=== PATIENT | female | born 1965 | race Caucasian/White ===

== ENCOUNTER → 2017-01-07 | Outpatient (CLI) | payer BC ==
[~2017-01-07] MED LIST: AMOX500T3 PO
[2017-01-07 13:13] LABS: BASO % 0.7 %; BASO ABS # 0.04 K/uL (0-0.2); COMPLETE YES; EOS % 1.7 %; HEMATOCRIT 38.8 % (37-47); IG% 0.5 %; LYMPH % 26.5 %; LYMPH ABS # 1.59 K/uL (1.2-3.4); MEAN CELL VOLUME 92.4 fL (80-100); MEAN CORPUSCULAR HEMOGLOBIN 31.7 pg (25-34); MEAN CORPUSCULAR HGB CONC 34.3 g/dl (32-36); MEAN PLATELET VOLUME 9.2 fL (7.4-10.4); MONO % 5.8 %; NEUT % 64.8 %; PLATELET COUNT 274 K/uL (130-400)
[2017-01-07 13:33] LABS: ALT/SGPT 34 U/L (12-78); AST/SGOT 18 U/L (15-37); BLOOD UREA NITROGEN 17 mg/dl (7-18); BUN/CREATININE RATIO 17.8 (10-20); CARBON DIOXIDE 28 mmol/L (21-32); CHLORIDE 107 mmol/L (98-107); CREATININE 0.94 mg/dl (0.60-1.20); GLUCOSE 88 mg/dl (70-99); POTASSIUM 4.2 mmol/L (3.5-5.1); SODIUM 143 mmol/L (136-145)
[2017-01-07 13:42] LABS: ALB/GLOB RATIO 1.3 (0.9-2); ALKALINE PHOSPHATASE 64 U/L (45-117); CHOLESTEROL 179 mg/dl (0-200); CHOLESTEROL/HDL RATIO 3.5; HDL CHOLESTEROL 51 mg/dl; LDL CHOLESTEROL CALCULATED 104 mg/dl; TRIGLYCERIDES 120 mg/dl (0-150); VERY LOW DENSITY LIPOPROT CALC 24 mg/dl
== END | disposition home or self-care (01) ==
LOC: C.LABMFLN 10:17
PROVIDERS: ATTEND Family Medicine
DX: I10 Essential (primary) hypertension (principal); E78.5 Hyperlipidemia, unspecified

== ENCOUNTER → 2017-02-04 | Outpatient (CLI) | payer BC ==
[2017-02-08 04:30] LABS: HERPES SIMPLEX AB IGG-2 <0.90 INDEX; HSV1 AB IGM Positive (Negative); HSV2 AB IGM Positive (Negative)
== END | disposition home or self-care (01) ==
LOC: C.LAB1850 16:24
PROVIDERS: ATTEND Physician Assistant
DX: B00.9 Herpesviral infection, unspecified (principal)

== ENCOUNTER → 2018-01-30 | Outpatient (CLI) | payer BC ==
[2018-01-30 12:46] LABS: BASO % 0.7 %; BASO ABS # 0.04 K/uL (0-0.2); EOS % 2.5 %; EOS ABS # 0.14 K/uL (0-0.5); HEMATOCRIT 39.2 % (37-47); HEMOGLOBIN 13.1 g/dL (12.0-16.0); IG# 0.02 K/uL (0.00-0.02); LYMPH % 37.7 %; LYMPH ABS # 2.08 K/uL (1.2-3.4); MEAN CORPUSCULAR HEMOGLOBIN 31.4 pg (25-34); MEAN CORPUSCULAR HGB CONC 33.4 g/dl (32-36); MEAN PLATELET VOLUME 9.4 fL (7.4-10.4); MONO % 7.1 %; MONO ABS # 0.39 K/uL (0.11-0.59); NEUT % 51.6 %; NEUT ABS # 2.85 K/uL (1.4-6.5); PLATELET COUNT 313 K/uL (130-400); RED CELL DISTRIBUTION WIDTH CV 13.2 % (11.5-14.5); RED CELL DISTRIBUTION WIDTH SD 45.6 fL (36.4-46.3); WHITE BLOOD COUNT 5.52 K/uL (4.8-10.8)
[2018-01-30 13:24] LABS: ALBUMIN 3.8 gm/dl (3.4-5.0); ALT/SGPT 32 U/L (12-78); AST/SGOT 21 U/L (15-37); BLOOD UREA NITROGEN 15 mg/dl (7-18); CALCIUM 9.3 mg/dl (8.5-10.1); CARBON DIOXIDE 29 mmol/L (21-32); CHOLESTEROL 147 mg/dl (0-200); CREATININE 0.82 mg/dl (0.60-1.20); GLUCOSE 98 mg/dl (70-99); POTASSIUM 4.4 mmol/L (3.5-5.1); SODIUM 138 mmol/L (136-145)
[2018-01-30 13:25] LABS: ALKALINE PHOSPHATASE 73 U/L (45-117); LDL CHOLESTEROL CALCULATED 86 mg/dl; TOTAL PROTEIN 7.1 gm/dl (6.4-8.2)
== END | disposition home or self-care (01) ==
LOC: C.LABMFLN 08:25
PROVIDERS: ATTEND Family Medicine
DX: I10 Essential (primary) hypertension (principal); E78.5 Hyperlipidemia, unspecified

== ENCOUNTER 2024-07-20 02:13 | Inpatient (IN) ==
--- NOTE | 2024-07-20 02:39 | Emergency Department Note ---
Impression & Plan Sepsis, Abscess, vagina, Leukocytosis ED Provider Note NAME: CHET TOMLIN AGE: 58 SEX: F : 1965 ARRIVES VIA: Walk-In INFORMANT: Patient ED PROVIDER(S): Fransisco Skelton DO CHIEF COMPLAINT: Pelvic pain HPI: Patient is a 58-year-old female who presents to the ER for pelvic pain. She notes she noticed something protruding last night from her vagina and notes it has been constant and severely painful. She admits she is currently having trouble walking due to the pain. She currently has stage IV metastatic breast cancer and has her typical pain throughout her entire body. Denies any fevers. Last chemo was in June and it was an IM injection. Denies any headache or change in vision. No chest pain or shortness of breath. No dysuria, urgency, or frequency but it is acutely painful in the groin when she urinates. No other exacerbating or remitting factors. She has never had this before. ADDITIONAL HISTORY OBTAINED: Per HPI Chronic Medical/Social Conditions Affecting Care: Per HPI PAST MEDICAL HISTORY:See Below PAST SURGICAL HISTORY:See Below FAMILY HISTORY:See Below SOCIAL HISTORY:See Below HOME MEDICATIONS:See Below ALLERGIES:See Below VITALS:See Below PHYSICAL EXAMINATION: GENERAL: Sitting up in bed, alert, well appearing, well nourished, no distress, non-toxic EYE EXAM: normal conjunctiva. OROPHARYNX: mucous membranes are moist LUNGS: Clear to auscultation. Normal chest wall mechanics HEART: no murmurs, S1 normal and S2 normal ABDOMEN: abdomen soft, non-tender, normo-active bowel sounds, no masses, no rebound or guarding. : Normal external genitalia with swelling on the inferior aspect of the vulva which is warm and tender to palpation. No significant erythema. UPPER EXTREMITIES: upper extremities are grossly normal. LOWER EXTREMITIES: No pitting edema. NEURO EXAM: Normal sensorium, cranial nerves II-XII grossly intact, normal speech, no gross weakness of arms, no gross weakness of legs. MEDICAL DECISION MAKING: Patient is a 58-year-old female who presents to the ER for pain in the vagina. IV was established medicos obtained. Labs show leukocytosis of 15,000. Mild anemia 10.3. BMP with a hyponatremia at 134. LFTs bilirubin and lipase was remarkable for a lipase of 100. UA does suggest a UTI with leuks and whites. Discussed with Dr. Christy from [facility] who evaluate the patient. We did decide to perform a CT which suggest an abscess between the anus and vagina. This was discussed with Jeremy from general surgery as well as Dr. Christy. She recommended admission to the hospitalist IV antibiotics and they will follow-up. Patient was given IV Zosyn. Updated bedside. She was given IV morphine. She was discussed with Dr. Lay for further evaluation management treatment. Consults/Care Managements Discussions: Per [facility] Triage Nursing notes reviewed. Limited review of prior medical records performed Vital Signs: reviewed and remarkable for HTN Differential diagnosis: Differential diagnoses includes but is not limited to gastritis, peptic ulcer disease, GERD, gallbladder disease, pancreatitis, small bowel obstruction, appendicitis, diverticulitis, hernia, urinary tract infection, torsion, perforation, trauma, infectious. ER treatment provided: See below Diagnostics interpreted by me include EKG and cardiac monitoring as listed below: -Cardiac Monitoring: An order was placed for continuous cardiac monitoring. The monitor shows a rate of 92 with sinus rhythm. -ECG: none -Laboratory studies:Interpreted by me as stated above in MDM and shown below. Imaging studies: Xrays: As interpreted by me:none CTs show: CT abdomen pelvis per my preliminary interpretation showed no obvious bowel obstruction CT abdomen pelvis per radiology as described above suggest a 1.2 x 2 cm abscess between the anus and vagina Procedures:none Critical Care: None Past Med/Surg History Problem List (Updated 07/20/24 @ 05:38 by Fly Thomas PA-C) Perineal abscess Swelling of vulva Herpes simplex Candidiasis of genitalia in female Pain of both hip joints Chills COVID-19 Breast cancer metastasized to bone PTSD (post-traumatic stress disorder) (Chronic) Nephrolithiasis (Chronic) Migraine headache (Chronic) Essential hypertension (Chronic) Hyperlipidemia (Chronic) Depression with anxiety (Chronic) S/P hysterectomy S/P dilatation and curettage S/P colonoscopy 06/14/2011 Osteoarthritis, hand Multiple pulmonary nodules Arthritis of carpometacarpal (CMC) joint of both thumbs Breast cancer, left breast diagnosed March 2021 s/p bilateral mastectomy, chemotherapy, RT Postmastectomy lymphedema Hand arthritis Medical History Hand arthritis Postmastectomy lymphedema Breast cancer, left breast Arthritis of carpometacarpal (CMC) joint of both thumbs Multiple pulmonary nodules Carpal tunnel syndrome on both sides Osteoarthritis, hand Depression with anxiety Hyperlipidemia Essential hypertension Migraine headache Nephrolithiasis PTSD (post-traumatic stress disorder) Surgical History H/O bilateral mastectomy H/O breast biopsy S/P carpal tunnel release S/P colonoscopy S/P dilatation and curettage S/P hysterectomy Family History Mother Acoustic neuroma Dyslipidemia Brother Anxiety Colonic polyp Father Anxiety Bladder cancer Hypertension Denies family history of Ovarian cancer Prostate cancer Myocardial infarction Breast cancer Social History Smoking Status: Former smoker Tobacco Type: Cigarettes Hx Alcohol Use: Yes Alcohol type: hard liquor Alcohol Intake Frequency: 2-4 x/Month Hx Substance Use: Yes Preferred Language: Tanzanian marital status: Current Living Situation: Spouse Feels Safe at Home: Yes Allergies Allergies Allergy/AdvReac Type Severity Reaction Status Date / Time amoxicillin [From Augmentin] AdvReac yeast Verified 07/06/24 11:36 infection clavulanic acid AdvReac yeast Verified 07/06/24 11:36 [From Augmentin] infection clindamycin AdvReac yeast Verified 07/06/24 11:36 infection ibuprofen [From Advil] AdvReac yeast Verified 07/06/24 11:36 infection midazolam [From Versed] AdvReac Verified 07/06/24 11:36 fentanyl AdvReac Severe Uncoded 07/06/24 11:36 Home Meds Home Medications Medication Instructions Recorded Confirmed alprazolam 0.5 mg tablet 0.5 mg PO TID PRN anxiety 10/20/23 07/06/24 dextroamphetamine-amphetamine ER 20 mg PO DAILY 10/20/23 07/06/24 20 mg 24hr capsule,extend release prazosin 1 mg capsule 1 mg PO QPM 10/20/23 07/06/24 calcium carbonate 500 mg PO BID 06/03/24 07/06/24 cholecalciferol (vitamin D3) 25 25 mcg PO DAILY 06/03/24 07/06/24 mcg (1,000 unit) capsule escitalopram oxalate 20 mg tablet 20 mg PO DAILY 06/03/24 07/06/24 multivitamin 1 tab PO DAILY 06/03/24 07/06/24 prochlorperazine maleate 10 mg 10 mg PO DAILY PRN 06/03/24 07/06/24 tablet (Compazine) ribociclib 600 mg/day (200 mg x 3) 600 mg PO DAILY 06/03/24 07/06/24 tablets turmeric root extract 500 mg tablet 500 mg PO BID 06/03/24 07/06/24 fulvestrant [Faslodex] 300 mg IM MONTHLY 07/06/24 07/06/24 zoledronic acid 4 mg/5 mL IV 07/06/24 07/06/24 intravenous solution Previous Rx's Medication Instructions Recorded lisinopril 10 mg tablet 10 mg PO DAILY #90 tabs 05/19/23 tramadol 50 mg tablet See Rx Instructions PO DAILY PRN 06/18/24 pain #120 tabs valacyclovir 500 mg tablet 1,000 mg (2 x 500 mg) PO .COMPLEX 07/06/24 #90 tabs cephalexin 500 mg capsule 500 mg PO QID #40 caps 07/19/24 Results & Data (ED) Vital Signs Vital Signs - 24 hr 07/20/24 02:16 07/20/24 03:42 07/20/24 03:51 Temperature 36.7 C Temperature Source Temporal Artery Scan Pulse Rate 105 H 93 H Pulse Rate [Finger] 93 H Pulse Rate from SpO2 Sensor Respiratory Rate 18 19 Respiratory Effort / Characteristics Non-Labored Spontaneous Non-Labored Respiratory Depth Normal Normal Respiratory Pattern Regular Regular Blood Pressure 146/70 H Blood Pressure [Right Arm] 153/99 H Blood Pressure Mean 95 Blood Pressure Mean [Right Arm] 117 Blood Pressure Position Sitting Blood Pressure Position [Right Arm] Sitting Pulse Oximetry 97 97 Oxygen Delivery Method Room Air Room Air Sepsis Recent Fever Within 48 Hours No Sepsis New/Unexplained Change in Mental Status N/A Sepsis Action Taken by Nursing No Action Required 07/20/24 03:51 07/20/24 04:14 07/20/24 04:21 Temperature 37.7 C H Temperature Source Oral Pulse Rate 96 H 96 H Pulse Rate [Finger] 93 H Pulse Rate from SpO2 Sensor 96 H 96 H Respiratory Rate 13 17 18 Respiratory Effort / Characteristics Non-Labored Respiratory Depth Normal Respiratory Pattern Regular Blood Pressure Blood Pressure [Right Arm] 153/99 H Blood Pressure Mean Blood Pressure Mean [Right Arm] 117 Blood Pressure Position Blood Pressure Position [Right Arm] Sitting Pulse Oximetry 97 97 97 Oxygen Delivery Method Room Air Sepsis Recent Fever Within 48 Hours Sepsis New/Unexplained Change in Mental Status Sepsis Action Taken by Nursing 07/20/24 04:27 07/20/24 04:32 Temperature Temperature Source Pulse Rate 95 H Pulse Rate [Finger] Pulse Rate from SpO2 Sensor 96 H Respiratory Rate 17 Respiratory Effort / Characteristics Respiratory Depth Respiratory Pattern Blood Pressure 127/76 Blood Pressure [Right Arm] Blood Pressure Mean 95 Blood Pressure Mean [Right Arm] Blood Pressure Position Blood Pressure Position [Right Arm] Pulse Oximetry 97 Oxygen Delivery Method Sepsis Recent Fever Within 48 Hours Sepsis New/Unexplained Change in Mental Status Sepsis Action Taken by Nursing Laboratory Data 07/20/24 03:14 07/20/24 03:14 Lab Results 07/20/24 07/20/24 Range/Units 03:14 04:32 WBC 15.11 H (4.8-10.8) K/ul RBC 3.09 L (4.20-5.40) M/uL Hgb 10.3 L (12.0-16.0) g/dl Hct 30.4 L (37.0-47.0) % MCV 98.4 (80.0-100.0) fL MCH 33.3 (25.0-34.0) pg MCHC 33.9 (32.0-36.0) g/dL RDW Std Deviation 53.3 H (36.4-46.3) fL RDW Coeff of Radha 14.7 H (11.5-14.5) % Plt Count 422 H (130-400) K/uL MPV 8.7 L (9.4-12.4) fL Immature Gran % (Auto) 0.5 % Neut % (Auto) 86.0 % Lymph % (Auto) 6.1 % [place] % (Auto) 6.1 % Eos % (Auto) 0.4 % Baso % (Auto) 0.9 % Neut # (Auto) 13.00 H (1.40-6.50) K/uL Lymph # (Auto) 0.92 L (1.20-3.40) K/uL [place] # (Auto) 0.92 H (0.11-0.59) K/uL Eos # (Auto) 0.06 (0.00-0.50) K/uL Baso # (Auto) 0.13 (0.00-0.20) K/uL Immature Gran # (Auto) 0.08 (0.01-0.20) K/uL Sodium 134 L (136-145) mmol/L Potassium 4.1 (3.5-5.1) mmol/L Chloride 102 (98-107) mmol/L Carbon Dioxide 24 (21-32) mmol/L Anion Gap 8 (3-11) BUN 15 (6-23) mg/dl Creatinine 0.58 L (0.6-1.2) mg/dl Est Cr Clr Drug Dosing Not Reportable Est GFR ( Amer) 117.8 ml/min Est GFR (Non-Af Amer) 101.6 ml/min BUN/Creatinine Ratio 25.9 H (10-20) Glucose 119 H (70-99(Fasting)) mg/dl Calcium 9.2 (8.6-10.3) mg/dl Total Bilirubin 0.3 (0.2-1.0) mg/dl AST 16 (13-39) U/L ALT 15 (7-52) U/L Alkaline Phosphatase 98 (34-104) U/L Total Protein 7.3 (6.0-8.3) gm/dl Albumin 4.0 (3.4-5.0) gm/dl Globulin 3.3 (2.5-4.0) gm/dl Albumin/Globulin Ratio 1.2 (0.9-2) Lipase 100 H (11-82) U/L Urine Color Yellow Urine Appearance Clear (Clear) Urine pH 6.0 (4.5-7.5) Ur Specific [place] 1.028 (1.000-1.030) Urine Protein 1+ H (Negative) Urine Glucose (UA) 1+ H (Negative) Urine Ketones Negative (Negative) Urine Blood Negative (Negative) Urine Nitrite Negative (Negative) Urine Bilirubin Negative (Negative) Urine Urobilinogen Negative (Negative) Ur Leukocyte Esterase 1+ H (Negative) Urine WBC (Auto) 21-50 H (0-5) /hpf Urine RBC (Auto) 0-2 (0-2) /hpf U Hyaline Cast (Auto) 0-2 (0-2) /lpf U Epithel Cells (Auto) 0-2 (0-2) /hpf Urine Bacteria (Auto) None Seen (None Seen) Administered Medications Discontinued Medications Sodium Chloride (Nss) 1,000 mls @ 999 mls/hr IV .Q1H1M ONE Stop: 07/20/24 05:22 Last Admin: 07/20/24 04:31 Dose: 999 mls/hr Documented By: DASIA Ioversol (Optiray 320 100ml) 100 ml IV ONCE ONE Stop: 07/20/24 04:14 Last Admin: 07/20/24 04:13 Dose: 93 ml Documented By: FLOR Methylprednisolone (Methylprednisolone 125 Mg/2 Ml Vial) 60 mg IV NOW STA Stop: 07/20/24 03:35 Last Admin: 07/20/24 04:29 Dose: 60 mg Documented By: DASIA Morphine Sulfate (Morphine Sulfate 4 Mg/Ml 1 Ml Carp\Vial) 4 mg IV NOW STA Stop: 07/20/24 02:54 Last Admin: 07/20/24 03:38 Dose: 4 mg Documented By: DASIA Imaging Data Radiologist's Impression: Abdomen/Pelvis CT 07/20/24 03:34 Exam(s): CT ABDOMEN + PELVIS With Contrast IV Amt: 93 ML OPTIRAY 320 EXAM: CT Abdomen and Pelvis With Intravenous Contrast CLINICAL HISTORY: Severe vaginal Pain TECHNIQUE: Axial computed tomography images of the abdomen and pelvis with intravenous contrast. CTDI is 9.38 mGy and DLP is 434.4 mGy-cm. Automated exposure control was utilized for the study. A dose lowering technique was utilized adhering to the principles of ALARA. CONTRAST: Patient received 93 ML OPTIRAY 320 of IV contrast COMPARISON: CT abdomen and pelvis 10/13/2018 FINDINGS: Lung bases: Unremarkable. No mass. No consolidation. ABDOMEN: Liver: Hepatomegaly. The liver measures 18.9 cm. Gallbladder and bile ducts: Unremarkable. No calcified stones. No ductal dilation. Pancreas: Unremarkable. No mass. No ductal dilation. Spleen: Unremarkable. No splenomegaly. Adrenals: Unremarkable. No mass. Kidneys and ureters: The kidneys are otherwise unremarkable. No hydronephrosis. There are simple appearing left renal cyst, no follow-up is needed. Stomach and bowel: No mucosal thickening. No obstruction. PELVIS: Appendix: No findings to suggest acute appendicitis. Bladder: Thickening of the bladder wall is concerning for cystitis. Reproductive: There is a 1.4 x 1.2 x 2.1 cm abscess between the vagina and anus. Hysterectomy. ABDOMEN and PELVIS: Intraperitoneal space: Unremarkable. No free air. No significant fluid collection. Bones/joints: There are degenerative changes of the spine. No acute fracture. No dislocation. Soft tissues: Unremarkable. Vasculature: Unremarkable. No abdominal aortic aneurysm. Lymph nodes: Unremarkable. No enlarged lymph nodes. IMPRESSION: 1. There is a 1.4 x 1.2 x 2.1 cm abscess between the vagina and anus. This could represent an abscess or be secondary to a vaginal process. Clinical issues recommended. 2. Thickening of the bladder wall is concerning for cystitis. 3. Hysterectomy. 4. Hepatomegaly. Electronically signed by: Tracy Higgins MD 07/20/24 05:05 AM Discharge Plan Visit Data Chief Complaint: Pain (Generalized) Stated Complaint: STAGE 4 BONE CANCER, IN PAIN ALL OVER, ED Provider: Fransisco Skelton Discharge Problem: Sepsis, Abscess, vagina, Leukocytosis Forms Stand Alone Forms: My [facility] [employer] Prescriptions Prescriptions: No Action lisinopril 10 mg tablet 10 mg PO DAILY Qty: 90 3RF cephalexin 500 mg capsule 500 mg PO QID Qty: 40 0RF alprazolam 0.5 mg tablet 0.5 mg PO HS PRN (Reason: anxiety) Patient Comments: pt states no medications today 05/25 prazosin 1 mg capsule 1 mg PO QPM dextroamphetamine-amphetamine 20 mg capsule,extended release 24hr 10 mg PO DAILY escitalopram oxalate 20 mg tablet 20 mg PO DAILY cholecalciferol (vitamin D3) 25 mcg (1,000 unit) capsule 25 mcg PO DAILY ribociclib 600 mg/day (200 mg x 3) tablet 600 mg PO DAILY Rx Instructions: administer for 21 days; off 7 days per 28-day cycle prochlorperazine maleate [Compazine] 10 mg tablet 10 mg PO DAILY PRN turmeric root extract 500 mg tablet 500 mg PO BID multivitamin Tablet 1 tab PO DAILY calcium carbonate 500 mg calcium (1,250 mg) tablet 500 mg PO BID fulvestrant [Faslodex] 300 mg IM MONTHLY zoledronic acid 4 mg/5 mL solution IV tramadol 50 mg tablet See Rx Instructions PO DAILY PRN (Reason: pain) Qty: 120 0RF Rx Instructions: 1-2 tab qid orally daily PRN; valacyclovir 500 mg tablet 500 mg PO DAILY Referrals Referrals: Last,Sai, DO [Primary Care Provider] - Discharge Problem: Sepsis Qualifiers: Sepsis type: sepsis due to unspecified organism Sepsis acute organ dysfunction status: unspecified Qualified Code(s): A41.9 - Sepsis, unspecified organism Leukocytosis Qualifiers: Leukocytosis type: unspecified Qualified Code(s): D72.829 - Elevated white blood cell count, unspecified
[2024-07-20 03:33] LABS: Basophils # (auto) 0.13 K/uL (0.00-0.20); Basophils % (auto) 0.9 %; Eosinophils # (auto) 0.06 K/uL (0.00-0.50); Eosinophils % (auto) 0.4 %; Hematocrit (blood only) 30.4 % (37.0-47.0); Hemoglobin 10.3 g/dl (12.0-16.0); Immature Granulocytes # (auto) 0.08 K/uL (0.01-0.20); Immature Granulocytes % (auto) 0.5 %; Lymphocytes # (auto) 0.92 K/uL (1.20-3.40); Lymphocytes % (auto) 6.1 %; Mean Corpuscular Hemoglobin 33.3 pg (25.0-34.0); Mean Corpuscular Hgb Conc 33.9 g/dL (32.0-36.0); Mean Corpuscular Volume 98.4 fL (80.0-100.0); Mean Platelet Volume 8.7 fL (9.4-12.4); Monocytes # (auto) 0.92 K/uL (0.11-0.59); Monocytes % (auto) 6.1 %; Platelet Count 422 K/uL (130-400); RDW Coefficient of Variation 14.7 % (11.5-14.5); RDW Standard Deviation 53.3 fL (36.4-46.3); Red Blood Count 3.09 M/uL (4.20-5.40); White Blood Count 15.11 K/ul (4.8-10.8)
[2024-07-20] MEDS: MoRPHine SULFATE 4 MG/ML 1 ML CARP\\VIAL IV STA ×3 (03:38→05:58)
[2024-07-20 03:47] LABS: Alanine Aminotransferase 15 U/L (7-52); Albumin Globulin Ratio 1.2 (0.9-2); Alkaline Phosphatase 98 U/L (34-104); Anion Gap 8 (3-11); Aspartate Aminotransferase 16 U/L (13-39); BUN Creatinine Ratio 25.9 (10-20); Bilirubin,Total 0.3 mg/dl (0.2-1.0); Blood Urea Nitrogen 15 mg/dl (6-23); Calcium 9.2 mg/dl (8.6-10.3); Carbon Dioxide 24 mmol/L (21-32); Chloride 102 mmol/L (98-107); Est GFR (African American) 117.8 ml/min; Est GFR (Non-African American) 101.6 ml/min; Globulin 3.3 gm/dl (2.5-4.0); Glucose 119 mg/dl (70-99(Fasting)); Lipase 100 U/L (11-82); Potassium 4.1 mmol/L (3.5-5.1); Sodium 134 mmol/L (136-145); Total Protein 7.3 gm/dl (6.0-8.3)
--- NOTE | 2024-07-20 04:01 | OB/GYN Consultation ---
Date of Consultation July 20, 2024 Assessment & Plan (1) Swelling of vulva: Given her previous reactions to medications with perineal symptoms, suspect this could be drug reaction-either recent tramadol use or less likely, related to recent chemo. While Wong-Maxwell syndrome is on the differential due to current cancer treatment and painful involvement of vaginal mucous membranes, no visible blistering rash elsewhere on the body. However, if blistering rash develops elsewhere, should continue to consider this differential. She also recently had suspected herpes outbreak, blood testing is still pending. Visible crusted lesions on exam, taking Valtrex. Not itchy, therefore do not suspect yeast infection. I do not think ultrasound imaging will be helpful, and patient is not likely to tolerate transvaginal probe. Could consider CT scan to determine extent of soft tissue swelling and involvement. Discussed findings with Dr. Skelton, who is considering possible steroid administration for symptomatic relief, I think this is reasonable. If worsening symptoms, would recommend to be seen for repeat evaluation. History of Present Illness Reason for Consultation: Vaginal pain Requesting Physician: Dr Skelton History of Present Illness 58-year-old with metastatic breast cancer presented to the emergency department with vaginal pain. It has worsened throughout the past day. She feels like the area is swollen and protruding. She also feels hot all over her body. She was seen by her PCP 2 weeks ago, diagnosed with herpes outbreak with 7 lesions, this was helped with Valtrex. She also has had a prescription for tramadol, last used 36 hours ago. Her breast cancer is treated in [place], last chemo treatment 3 weeks ago. She reports history of perineal problems with multiple medications, these are listed in her record as yeast infection, however she states they presented as similar to today's symptoms but not as severe. She has had this type of reaction with Augmentin, clindamycin, ibuprofen. Gynecologic history significant for hysterectomy in her 40s, has not seen a PEDIATRIC NEUROLOGIST since. Routine care with PCP. Allergies Allergy/AdvReac Type Severity Reaction Status Date / Time amoxicillin [From Augmentin] AdvReac yeast Verified 07/06/24 11:36 infection clavulanic acid AdvReac yeast Verified 07/06/24 11:36 [From Augmentin] infection clindamycin AdvReac yeast Verified 07/06/24 11:36 infection ibuprofen [From Advil] AdvReac yeast Verified 07/06/24 11:36 infection midazolam [From Versed] AdvReac Verified 07/06/24 11:36 fentanyl AdvReac Severe Uncoded 07/06/24 11:36 Home Medications Medication Instructions Recorded Confirmed Type lisinopril 10 mg tablet 10 mg PO DAILY #90 tabs 05/19/23 07/06/24 Rx alprazolam 0.5 mg tablet 0.5 mg PO TID PRN anxiety 10/20/23 07/06/24 History dextroamphetamine-amphetamine ER 20 mg PO DAILY 10/20/23 07/06/24 History 20 mg 24hr capsule,extend release prazosin 1 mg capsule 1 mg PO QPM 10/20/23 07/06/24 History calcium carbonate 500 mg PO BID 06/03/24 07/06/24 History cholecalciferol (vitamin D3) 25 25 mcg PO DAILY 06/03/24 07/06/24 History mcg (1,000 unit) capsule escitalopram oxalate 20 mg tablet 20 mg PO DAILY 06/03/24 07/06/24 History multivitamin 1 tab PO DAILY 06/03/24 07/06/24 History prochlorperazine maleate 10 mg 10 mg PO DAILY PRN 06/03/24 07/06/24 History tablet (Compazine) ribociclib 600 mg/day (200 mg x 3) 600 mg PO DAILY 06/03/24 07/06/24 History tablets turmeric root extract 500 mg tablet 500 mg PO BID 06/03/24 07/06/24 History tramadol 50 mg tablet See Rx Instructions PO DAILY PRN 06/18/24 07/06/24 Rx pain #120 tabs fulvestrant [Faslodex] 300 mg IM MONTHLY 07/06/24 07/06/24 History valacyclovir 500 mg tablet 1,000 mg (2 x 500 mg) PO .COMPLEX 07/06/24 07/06/24 Rx #90 tabs zoledronic acid 4 mg/5 mL IV 07/06/24 07/06/24 History intravenous solution cephalexin 500 mg capsule 500 mg PO QID #40 caps 07/19/24 Rx Patient History Medical History Hand arthritis Postmastectomy lymphedema Breast cancer, left breast Arthritis of carpometacarpal (CMC) joint of both thumbs Multiple pulmonary nodules Carpal tunnel syndrome on both sides Osteoarthritis, hand Depression with anxiety Hyperlipidemia Essential hypertension Migraine headache Nephrolithiasis PTSD (post-traumatic stress disorder) Surgical History H/O bilateral mastectomy H/O breast biopsy S/P carpal tunnel release S/P colonoscopy S/P dilatation and curettage S/P hysterectomy Family History Mother Acoustic neuroma Dyslipidemia Brother Anxiety Colonic polyp Father Anxiety Bladder cancer Hypertension Denies family history of Ovarian cancer Prostate cancer Myocardial infarction Breast cancer Social History Smoking Status: Former smoker Tobacco Type: Cigarettes Hx Alcohol Use: Yes Alcohol type: hard liquor Alcohol Intake Frequency: 2-4 x/Month Hx Substance Use: Yes Preferred Language: Palestinian marital status: Current Living Situation: Spouse Feels Safe at Home: Yes Physical Exam Physical Exam: Physical exam performed with nurse present in the room. There are the annie earance of healing crusted herpes lesions on the perineum, additionally bilateral perineal area is swollen, tender to the touch, exam is difficult due to patient's discomfort. No Bartholin's gland swelling, no prolapse of pelvic organs. There is a hymenal remnant that is swollen, suspect this is what she felt was protruding. Results & Data Vital Signs (Past 12 Hours) Vital Signs Temp Pulse Pulse Resp BP BP Pulse Ox 07/20/24 03:51 93 H 07/20/24 03:42 93 H 19 153/99 H 97 07/20/24 02:16 36.7 C 105 H 18 146/70 H 97 O2 Del Method 07/20/24 03:51 07/20/24 03:42 Room Air 07/20/24 02:16 Room Air PG Care Time/CCT Total # of Minutes Spent Total Time Spent with Patient: Total time spent is greater than 50% in coordination of care (as documented) at patient's floor/unit and/or counseling patient: Coding Level of Care Code 39968 OFFICE CONSULT LVL 01/30M Diagnoses Swelling of vulva N90.89
[2024-07-20] MEDS: OPTIRAY 320 100ml IV ONE (04:13)
[2024-07-20] MEDS: methylPREDNISolone 125 MG/2 ML VIAL IV STA (04:29)
[2024-07-20] MEDS: SODIUM CHLORIDE 0.9% 1,000 ML IV ONE (04:31)
[2024-07-20 04:49] LABS: Appearance Urine Clear (Clear); Bacteria Urine Automated None Seen (None Seen); Bilirubin Urine Negative (Negative); Blood Urine Negative (Negative); Cast Urine Automated 0-2 /lpf (0-2); Color Urine Yellow; Epithelial Cell Urine Auto 0-2 /hpf (0-2); Glucose Urine UA 1+ (Negative); Ketones Urine Negative (Negative); Leukocyte Esterase Urine 1+ (Negative); Nitrite Urine Negative (Negative); Protein Urine 1+ (Negative); RBC Urine Automated 0-2 /hpf (0-2); Specific Gravity Urine 1.028 (1.000-1.030); Urobilinogen Urine Negative (Negative); WBC Urine Automated 21-50 /hpf (0-5)
--- NOTE | 2024-07-20 05:07 | CT Scan Report ---
Exam(s): CT ABDOMEN + PELVIS With Contrast IV Amt: 93 ML OPTIRAY 320 EXAM: CT Abdomen and Pelvis With Intravenous Contrast CLINICAL HISTORY: Severe vaginal Pain TECHNIQUE: Axial computed tomography images of the abdomen and pelvis with intravenous contrast. CTDI is 9.38 mGy and DLP is 434.4 mGy-cm. Automated exposure control was utilized for the study. A dose lowering technique was utilized adhering to the principles of ALARA. CONTRAST: Patient received 93 ML OPTIRAY 320 of IV contrast COMPARISON: CT abdomen and pelvis 10/13/2018 FINDINGS: Lung bases: Unremarkable. No mass. No consolidation. ABDOMEN: Liver: Hepatomegaly. The liver measures 18.9 cm. Gallbladder and bile ducts: Unremarkable. No calcified stones. No ductal dilation. Pancreas: Unremarkable. No mass. No ductal dilation. Spleen: Unremarkable. No splenomegaly. Adrenals: Unremarkable. No mass. Kidneys and ureters: The kidneys are otherwise unremarkable. No hydronephrosis. There are simple appearing left renal cyst, no follow-up is needed. Stomach and bowel: No mucosal thickening. No obstruction. PELVIS: Appendix: No findings to suggest acute appendicitis. Bladder: Thickening of the bladder wall is concerning for cystitis. Reproductive: There is a 1.4 x 1.2 x 2.1 cm abscess between the vagina and anus. Hysterectomy. ABDOMEN and PELVIS: Intraperitoneal space: Unremarkable. No free air. No significant fluid collection. Bones/joints: There are degenerative changes of the spine. No acute fracture. No dislocation. Soft tissues: Unremarkable. Vasculature: Unremarkable. No abdominal aortic aneurysm. Lymph nodes: Unremarkable. No enlarged lymph nodes. IMPRESSION: 1. There is a 1.4 x 1.2 x 2.1 cm abscess between the vagina and anus. This could represent an abscess or be secondary to a vaginal process. Clinical issues recommended. 2. Thickening of the bladder wall is concerning for cystitis. 3. Hysterectomy. 4. Hepatomegaly. Electronically signed by: Tracy Higgins MD 07/20/24 05:05 AM
--- NOTE | 2024-07-20 05:40 | Surgery Consultation ---
Date of Consultation July 20, 2024 Assessment & Plan (1) Perineal abscess: I discussed with the treating emergency room physician the patient is being admitted on the hospitalist service. From surgery electively recommend the following: Provide analgesics Provide antiemetics The patient has had antibiotics in form of Zosyn initiated and should continue Keep patient n.p.o. for the present time Continue with intravenous fluids Patient be seen by Dr. Castillo the morning of 07/20/2024 and a determination will made if patient requires incision and drainage of the fluid collection/abscess in question or if antibiotics alone are sufficient at this time as it appears to be draining. Additional recommendations will be forthcoming based on her clinical course as it unfolds Supervising Physician Co-Signing Physician Notes I have seen and examined the patient this am with the surgical team. Drainage has been from the vagina suggesting vaginal communication. Max TTP just posterior to the vagina along with significant changes involving the vaginal tissues including edema, swelling and seepage. No evidence of open areas of drainage at the skin posterior to the vagina. I would defer this to OBGYN for further management. General surgery will sign off Please call me if other concerns for general surgery arise. History of Present Illness Reason for Consultation: Perineal abscess History of Present Illness This is a 58-year-old female who has an underlying history of metastatic breast cancer who presented to the emergency department [facility] secondary to perineal pain. The patient says that the patient has had numerous lesions in her perineal area for approximately 1 month. She says that she has undergone numerous tests for these lesions all with negative results. She does note that the area in question prompting her visit to the emergency department is gotten worse over the past few days. The patient notes that she has not had a fever but does feel warm. She denies any nausea or vomiting. She denies any dysuria. She does report some intermittent painful bowel movements. She also notes that she has had a puslike vaginal discharge since the pain became worse. The patient notes that she is currently being treated for metastatic breast c ancer and receives a monthly injection and her most recent treatment was on July 02 of this year. She notes that her next chemo injection is due on 07/30/2024. Since arrival to hospital patient has had labs and imaging which independent reviewed. The patient did have a CT scan of the abdomen pelvis that showed the patient had a 1.4 x 1.2 x 2.1 cm abscess between the vagina and anus. Labs incl uded CBC her white blood cell count was elevated 15.1. Hemoglobin and hematocrit were 10.3 and 30.4. Platelet count was 422,000. Chemistry profile showed sodium was 134 with a normal potassium. BUN and creatinine were 15 and 0.5. A urinalysis was performed that showed 1+ leukocyte esterase and 21-50 white blood cells per high-power field. There is no bacteria or nitrites noted on the study. At the time my interview she was resting comfortably in bed and she was in no distress. Allergies Allergy/AdvReac Type Severity Reaction Status Date / Time fentanyl AdvReac Severe Patient Verified 07/20/24 05:51 became very hyper-alert, agitation amoxicillin [From Augmentin] AdvReac yeast Verified 07/20/24 05:48 infection clavulanic acid AdvReac yeast Verified 07/20/24 05:48 [From Augmentin] infection clindamycin AdvReac yeast Verified 07/20/24 05:48 infection ibuprofen [From Advil] AdvReac yeast Verified 07/20/24 05:48 infection midazolam [From Versed] AdvReac Patient Verified 07/20/24 05:51 became very hyper-alert, agitation Home Medications Medication Instructions Recorded Confirmed Type lisinopril 10 mg tablet 10 mg PO DAILY #90 tabs 05/19/23 07/20/24 Rx alprazolam 0.5 mg tablet 0.5 mg PO HS PRN anxiety 10/20/23 07/20/24 History dextroamphetamine-amphetamine ER 10 mg PO DAILY 10/20/23 07/20/24 History 20 mg 24hr capsule,extend release prazosin 1 mg capsule 1 mg PO QPM 10/20/23 07/20/24 History calcium carbonate 500 mg PO BID 06/03/24 07/20/24 History cholecalciferol (vitamin D3) 25 25 mcg PO DAILY 06/03/24 07/20/24 History mcg (1,000 unit) capsule escitalopram oxalate 20 mg tablet 20 mg PO DAILY 06/03/24 07/20/24 History multivitamin 1 tab PO DAILY 06/03/24 07/20/24 History prochlorperazine maleate 10 mg 10 mg PO DAILY PRN n/v 06/03/24 07/20/24 History tablet (Compazine) ribociclib 600 mg/day (200 mg x 3) 600 mg PO DAILY 06/03/24 07/20/24 History tablets (Kisqali) turmeric root extract 500 mg tablet 500 mg PO BID 06/03/24 07/20/24 History tramadol 50 mg tablet See Rx Instructions PO DAILY PRN 06/18/24 07/20/24 Rx pain #120 tabs fulvestrant [Faslodex] 300 mg IM MONTHLY 07/06/24 07/20/24 History zoledronic acid 4 mg/5 mL 4 mg IV DIRECTED 07/06/24 07/20/24 History intravenous solution cephalexin 500 mg capsule 500 mg PO QID #40 caps 07/19/24 07/20/24 Rx valacyclovir 500 mg tablet 500 mg PO DAILY 07/20/24 07/20/24 History Patient History Medical History Carpal tunnel syndrome on both sides Surgical History H/O bilateral mastectomy H/O breast biopsy S/P carpal tunnel release Family History Mother Acoustic neuroma Dyslipidemia Brother Anxiety Colonic polyp Father Anxiety Bladder cancer Hypertension Denies family history of Ovarian cancer Prostate cancer Myocardial infarction Breast cancer Social History Smoking Status: Former smoker Tobacco Type: Cigarettes Hx Alcohol Use: Yes Alcohol type: hard liquor Alcohol Intake Frequency: 2-4 x/Month Hx Substance Use: Yes Preferred Language: German marital status: Current Living Situation: Spouse Feels Safe at Home: Yes Review of Systems Review of Systems: All systems reviewed & are unremarkable except as noted in HPI & below Physical Exam Constitutional: WD/WN, vitals as above Eyes: no conjunctival abnormality ENMT: Ears: no hearing impairment and no external ear abnormality Mouth: no oropharynx abnormality Neck: trachea midline Respiratory: normal respiratory effort; no respiratory distress and no labored breathing Cardiovascular: Rate/Rhythm: regular rate and regular rhythm Gastrointestinal (Abdomen): Soft and nontender Musculoskeletal: No calf tenderness Skin: no rashes Neurologic: moves all extremities Genitourinary: With a female nurse advanced practice rn present the patient's perineum was examined. There is crusted lesions were noted in the perineum. The patient's perineal area was swollen and tender to palpation. There is no crepitus noted in the soft tissue. There is some purulent material draining from what appeared to be the vaginal area. Results & Data Vital Signs (Past 12 Hours) Vital Signs Temp Pulse Pulse Resp BP BP Pulse Ox 07/20/24 04:32 127/76 07/20/24 04:27 95 H 17 97 07/20/24 04:21 96 H 18 97 07/20/24 04:14 37.7 C H 93 H 17 153/99 H 97 07/20/24 03:51 96 H 13 97 07/20/24 03:51 93 H 07/20/24 03:42 93 H 19 153/99 H 97 07/20/24 02:16 36.7 C 105 H 18 146/70 H 97 O2 Del Method 07/20/24 04:32 07/20/24 04:27 07/20/24 04:21 07/20/24 04:14 Room Air 07/20/24 03:51 07/20/24 03:51 07/20/24 03:42 Room Air 07/20/24 02:16 Room Air PG Care Time/CCT Total # of Minutes Spent Total Time Spent with Patient: Total time spent is greater than 50% in coordination of care (as documented) at patient's floor/unit and/or counseling patient: Coding Level of Care Code 51626 IN/OBS CONSULT LVL 5,80M Diagnoses Perineal abscess L02.215
[2024-07-20 05:49] LABS: Partial Thromboplastin Ratio 1.2; Partial Thromboplastin Time 31 Seconds (21-31); Prothrombin Time 10.5 Seconds (9.0-12.0)
--- NOTE | 2024-07-20 05:53 | History & Physical Report ---
Date of Service July 20, 2024 Assessment & Plan (1) Perineal abscess: Plan: 58yo female with history of metastatic breast cancer on chemotherapy presenting with pain and swelling of her perineal region. Found with a 1.4 x 1.2 x 2.1 cm abscess between the vagina and anus. -Admit to medical -Follow cultures -Antibiotic coverage with zosyn 4.5gm IV q 8 hours -Pain control with Morphine PRN -Tylenol as needed for pain or fever -Zofran PRN nausea -Benadryl as needed for itching -Miralax PRN constipation -Appreciate input from General Surgery as well as OB-Cigar Wrapper -will form definitive management plan for possible drainage. Patient would like to re-iterate that, in regards to hayes-operative sedation, she is unable to tolerate Versed and Fentanyl (2) Breast cancer metastasized to bone: Plan: Patient follows with Oncology at [facility]. Was previously receiving monthly injections of Fulvestrant but these have been placed on hold until the end of July due to concern for possible side effects -Followup outpatient (3) Essential hypertension: Plan: Chronic. Blood pressure well controlled -Continue Lisinopril 10mg po daily (4) Depression with anxiety: Plan: Chronic -Continue Lexapro -Continue Alprazolam PRN -Continue Prazosin Plan ADHD - chronic -Continue home Adderrall ER 10mg daily History of Present Illness Chief Complaint: perineal pain Primary Care Provider: DO Carrie Montiel Blayne is a 58yo female presenting with vulvar pain and swelling. Patient with history of metastatic breast cancer - follows with Oncology at [facility] - previously on Fulvestrant injections monthly which have been placed on hold until the end of the month due to side effects. Last chemotherapy 07/02/24. Patient reports one month of vaginal/perineal discomfort as well as the feeling that something is protruding from her vagina. She has had lesions as well - has been tested for HSV 1&2 as well as HCV which have been NEGATIVE. Over the last 36-48 hours she has had extreme discomfort - unable to sit. Has also had continuous drainage, yellow in color, no foul smell. Additionally patient reports subjective fevers, chills, rigors, fatigue and shortness of breath. In the ER she is afebrile but with elevated temperature to 37.7, HD stable ER Course: Solumedrol Morphine Zosyn NSS Allergies Allergy/AdvReac Type Severity Reaction Status Date / Time fentanyl AdvReac Severe Patient Verified 07/20/24 05:51 became very hyper-alert, agitation amoxicillin [From Augmentin] AdvReac yeast Verified 07/20/24 05:48 infection clavulanic acid AdvReac yeast Verified 07/20/24 05:48 [From Augmentin] infection clindamycin AdvReac yeast Verified 07/20/24 05:48 infection ibuprofen [From Advil] AdvReac yeast Verified 07/20/24 05:48 infection midazolam [From Versed] AdvReac Patient Verified 07/20/24 05:51 became very hyper-alert, agitation Home Medications Medication Instructions Recorded Confirmed Type lisinopril 10 mg tablet 10 mg PO DAILY #90 tabs 05/19/23 07/20/24 Rx alprazolam 0.5 mg tablet 0.5 mg PO HS PRN anxiety 10/20/23 07/20/24 History dextroamphetamine-amphetamine ER 10 mg PO DAILY 10/20/23 07/20/24 History 20 mg 24hr capsule,extend release prazosin 1 mg capsule 1 mg PO QPM 10/20/23 07/20/24 History calcium carbonate 500 mg PO BID 06/03/24 07/20/24 History cholecalciferol (vitamin D3) 25 25 mcg PO DAILY 06/03/24 07/20/24 History mcg (1,000 unit) capsule escitalopram oxalate 20 mg tablet 20 mg PO DAILY 06/03/24 07/20/24 History multivitamin 1 tab PO DAILY 06/03/24 07/20/24 History prochlorperazine maleate 10 mg 10 mg PO DAILY PRN 06/03/24 07/06/24 History tablet (Compazine) ribociclib 600 mg/day (200 mg x 3) 600 mg PO DAILY 06/03/24 07/06/24 History tablets turmeric root extract 500 mg tablet 500 mg PO BID 06/03/24 07/20/24 History tramadol 50 mg tablet See Rx Instructions PO DAILY PRN 06/18/24 07/06/24 Rx pain #120 tabs fulvestrant [Faslodex] 300 mg IM MONTHLY 07/06/24 07/06/24 History zoledronic acid 4 mg/5 mL IV 07/06/24 07/06/24 History intravenous solution cephalexin 500 mg capsule 500 mg PO QID #40 caps 07/19/24 Rx valacyclovir 500 mg tablet 500 mg PO DAILY 07/20/24 07/20/24 History Past Med/Surg History Problem List Perineal abscess Swelling of vulva Herpes simplex Candidiasis of genitalia in female Pain of both hip joints Chills COVID-19 Breast cancer metastasized to bone PTSD (post-traumatic stress disorder) (Chronic) Nephrolithiasis (Chronic) Migraine headache (Chronic) Essential hypertension (Chronic) Hyperlipidemia (Chronic) Depression with anxiety (Chronic) S/P hysterectomy S/P dilatation and curettage S/P colonoscopy 06/14/2011 Osteoarthritis, hand Multiple pulmonary nodules Arthritis of carpometacarpal (CMC) joint of both thumbs Breast cancer, left breast diagnosed March 2021 s/p bilateral mastectomy, chemotherapy, RT Postmastectomy lymphedema Hand arthritis Medical History Carpal tunnel syndrome on both sides Surgical History H/O bilateral mastectomy H/O breast biopsy S/P carpal tunnel release Family History Mother Acoustic neuroma Dyslipidemia Brother Anxiety Colonic polyp Father Anxiety Bladder cancer Hypertension Denies family history of Ovarian cancer Prostate cancer Myocardial infarction Breast cancer Social History Smoking Status: Former smoker Tobacco Type: Cigarettes Hx Alcohol Use: Yes Alcohol type: hard liquor Alcohol Intake Frequency: 2-4 x/Month Hx Substance Use: Yes Preferred Language: Yemeni marital status: Current Living Situation: Spouse Feels Safe at Home: Yes Review of Systems Review of Systems: All systems reviewed & are unremarkable except as noted in HPI & below Physical Exam Physical Exam: General: patient in discomfort, NAD HEENT: NC/AT, PERRL, EOMI, anicteric sclera, conjunctiva without injection, external ear normal to inspection and nontender, nares patent, moist mucus membranes, dentition intact, no oropharyngeal lesions, neck supple, trachea midline, no LAD, no thyromegaly, no JVD Heart: +S1/S2, regular, no m/r/g Lungs: equal air entry bilaterally, no rales/rhonchi/wheezes Abd: +BS, soft, NT/ND, no masses/organomegaly/ascites Ext: warm, 2+ pulses in UE/LE bilaterally, no clubbing/cyanosis or edema Neuro: nonfocal, patient AA&O x 4, speech intact, no facial droop, moving all extremities on command with equal strength 5/5 Genitourinary exam deferred due to discomfort - patient was just recently examined by ELECTRIC WHEELCHAIR REPAIRER Results & Data Results & Data Vital Signs (Past 12 Hours) Vital Signs Temp Pulse Pulse Resp BP BP Pulse Ox 07/20/24 04:32 127/76 07/20/24 04:27 95 H 17 97 07/20/24 04:21 96 H 18 97 07/20/24 04:14 37.7 C H 93 H 17 153/99 H 97 07/20/24 03:51 96 H 13 97 07/20/24 03:51 93 H 07/20/24 03:42 93 H 19 153/99 H 97 07/20/24 02:16 36.7 C 105 H 18 146/70 H 97 O2 Del Method 07/20/24 04:32 07/20/24 04:27 07/20/24 04:21 07/20/24 04:14 Room Air 07/20/24 03:51 07/20/24 03:51 07/20/24 03:42 Room Air 07/20/24 02:16 Room Air Laboratory Results Laboratory Results WBC 15.11 K/ul (4.8-10.8) H 07/20/24 03:14 RBC 3.09 M/uL (4.20-5.40) L 07/20/24 03:14 Hgb 10.3 g/dl (12.0-16.0) L 07/20/24 03:14 Hct 30.4 % (37.0-47.0) L 07/20/24 03:14 MCV 98.4 fL (80.0-100.0) 07/20/24 03:14 MCH 33.3 pg (25.0-34.0) 07/20/24 03:14 MCHC 33.9 g/dL (32.0-36.0) 07/20/24 03:14 RDW Std Deviation 53.3 fL (36.4-46.3) H 07/20/24 03:14 RDW Coeff of Radha 14.7 % (11.5-14.5) H 07/20/24 03:14 Plt Count 422 K/uL (130-400) H 07/20/24 03:14 MPV 8.7 fL (9.4-12.4) L 07/20/24 03:14 Immature Gran % (Auto) 0.5 % 07/20/24 03:14 Neut % (Auto) 86.0 % 07/20/24 03:14 Lymph % (Auto) 6.1 % 07/20/24 03:14 Stark % (Auto) 6.1 % 07/20/24 03:14 Eos % (Auto) 0.4 % 07/20/24 03:14 Baso % (Auto) 0.9 % 07/20/24 03:14 Neut # (Auto) 13.00 K/uL (1.40-6.50) H 07/20/24 03:14 Lymph # (Auto) 0.92 K/uL (1.20-3.40) L 07/20/24 03:14 Stark # (Auto) 0.92 K/uL (0.11-0.59) H 07/20/24 03:14 Eos # (Auto) 0.06 K/uL (0.00-0.50) 07/20/24 03:14 Baso # (Auto) 0.13 K/uL (0.00-0.20) 07/20/24 03:14 Immature Gran # (Auto) 0.08 K/uL (0.01-0.20) 07/20/24 03:14 PT 10.5 Seconds (9.0-12.0) 07/20/24 03:14 INR 1.0 (0.9-1.1) 07/20/24 03:14 APTT 31 Seconds (21-31) 07/20/24 03:14 PTT Ratio 1.2 07/20/24 03:14 Sodium 134 mmol/L (136-145) L 07/20/24 03:14 Potassium 4.1 mmol/L (3.5-5.1) 07/20/24 03:14 Chloride 102 mmol/L (98-107) 07/20/24 03:14 Carbon Dioxide 24 mmol/L (21-32) 07/20/24 03:14 Anion Gap 8 (3-11) 07/20/24 03:14 BUN 15 mg/dl (6-23) 07/20/24 03:14 Creatinine 0.58 mg/dl (0.6-1.2) L 07/20/24 03:14 Est Cr Clr Drug Dosing Not Reportable 07/20/24 03:14 Est GFR ( Amer) 117.8 ml/min 07/20/24 03:14 Est GFR (Non-Af Amer) 101.6 ml/min 07/20/24 03:14 BUN/Creatinine Ratio 25.9 (10-20) H 07/20/24 03:14 Glucose 119 mg/dl (70-99(Fasting)) H 07/20/24 03:14 Calcium 9.2 mg/dl (8.6-10.3) 07/20/24 03:14 Total Bilirubin 0.3 mg/dl (0.2-1.0) 07/20/24 03:14 AST 16 U/L (13-39) 07/20/24 03:14 ALT 15 U/L (7-52) 07/20/24 03:14 Alkaline Phosphatase 98 U/L (34-104) 07/20/24 03:14 Total Protein 7.3 gm/dl (6.0-8.3) 07/20/24 03:14 Albumin 4.0 gm/dl (3.4-5.0) 07/20/24 03:14 Globulin 3.3 gm/dl (2.5-4.0) 07/20/24 03:14 Albumin/Globulin Ratio 1.2 (0.9-2) 07/20/24 03:14 Lipase 100 U/L (11-82) H 07/20/24 03:14 Urine Color Yellow 07/20/24 04:32 Urine Appearance Clear (Clear) 07/20/24 04:32 Urine pH 6.0 (4.5-7.5) 07/20/24 04:32 Ur Specific [place] 1.028 (1.000-1.030) 07/20/24 04:32 Urine Protein 1+ (Negative) H 07/20/24 04:32 Urine Glucose (UA) 1+ (Negative) H 07/20/24 04:32 Urine Ketones Negative (Negative) 07/20/24 04:32 Urine Blood Negative (Negative) 07/20/24 04:32 Urine Nitrite Negative (Negative) 07/20/24 04:32 Urine Bilirubin Negative (Negative) 07/20/24 04:32 Urine Urobilinogen Negative (Negative) 07/20/24 04:32 Ur Leukocyte Esterase 1+ (Negative) H 07/20/24 04:32 Urine WBC (Auto) 21-50 /hpf (0-5) H 07/20/24 04:32 Urine RBC (Auto) 0-2 /hpf (0-2) 07/20/24 04:32 U Hyaline Cast (Auto) 0-2 /lpf (0-2) 07/20/24 04:32 U Epithel Cells (Auto) 0-2 /hpf (0-2) 07/20/24 04:32 Urine Bacteria (Auto) None Seen (None Seen) 07/20/24 04:32 Impressions Abdomen/Pelvis CT 07/20/24 03:34 Exam(s): CT ABDOMEN + PELVIS With Contrast IV Amt: 93 ML OPTIRAY 320 EXAM: CT Abdomen and Pelvis With Intravenous Contrast CLINICAL HISTORY: Severe vaginal Pain TECHNIQUE: Axial computed tomography images of the abdomen and pelvis with intravenous contrast. CTDI is 9.38 mGy and DLP is 434.4 mGy-cm. Automated exposure control was utilized for the study. A dose lowering technique was utilized adhering to the principles of ALARA. CONTRAST: Patient received 93 ML OPTIRAY 320 of IV contrast COMPARISON: CT abdomen and pelvis 10/13/2018 FINDINGS: Lung bases: Unremarkable. No mass. No consolidation. ABDOMEN: Liver: Hepatomegaly. The liver measures 18.9 cm. Gallbladder and bile ducts: Unremarkable. No calcified stones. No ductal dilation. Pancreas: Unremarkable. No mass. No ductal dilation. Spleen: Unremarkable. No splenomegaly. Adrenals: Unremarkable. No mass. Kidneys and ureters: The kidneys are otherwise unremarkable. No hydronephrosis. There are simple appearing left renal cyst, no follow-up is needed. Stomach and bowel: No mucosal thickening. No obstruction. PELVIS: Appendix: No findings to suggest acute appendicitis. Bladder: Thickening of the bladder wall is concerning for cystitis. Reproductive: There is a 1.4 x 1.2 x 2.1 cm abscess between the vagina and anus. Hysterectomy. ABDOMEN and PELVIS: Intraperitoneal space: Unremarkable. No free air. No significant fluid collection. Bones/joints: There are degenerative changes of the spine. No acute fracture. No dislocation. Soft tissues: Unremarkable. Vasculature: Unremarkable. No abdominal aortic aneurysm. Lymph nodes: Unremarkable. No enlarged lymph nodes. IMPRESSION: 1. There is a 1.4 x 1.2 x 2.1 cm abscess between the vagina and anus. This could represent an abscess or be secondary to a vaginal process. Clinical issues recommended. 2. Thickening of the bladder wall is concerning for cystitis. 3. Hysterectomy. 4. Hepatomegaly. Electronically signed by: Tracy Higgins MD 07/20/24 05:05 AM Code Status & VTE Plan VTE Prophylaxis Plan VTE Prophylaxis will be ordered: Yes PG Care Time/CCT Total # of Minutes Spent Total Time Spent with Patient: Total time spent is greater than 50% in coordination of care (as documented) at patient's floor/unit and/or counseling patient: Coding Level of Care Code 12024 INT INP/OBS CARE 3/75MIN Diagnoses Perineal abscess L02.215 Breast cancer metastasized to bone C50.919; C79.51 Essential hypertension I10 Depression with anxiety F41.8
[2024-07-20] MEDS: ACETAMINOPHEN 325 MG TAB PO PRN (05:57)
[2024-07-20] MEDS: PIPERACILLIN/TAZOBACTAM 4.5 GM/100 ML BAG IV ONE (06:02)
[2024-07-20] MEDS: ACETAMINOPHEN 325 MG TAB ONE (06:02)
[2024-07-20] MEDS ORDERED: ONDANSETRON INJ 2 MG/ML 2 ML VIAL IV PRN (08:48)
[2024-07-20] MEDS ORDERED: MoRPHine SULFATE 4 MG/ML 1 ML CARP\\VIAL IV PRN (08:48)
[2024-07-20] MEDS ORDERED: ACETAMINOPHEN 325 MG TAB PO PRN (08:48)
[2024-07-20] MEDS ORDERED: diphenhydrAMINE 50 MG/ML VIAL IV PRN (08:48)
[2024-07-20] MEDS ORDERED: Patient's WEIGHT Needed SCH (09:00)
--- NOTE | 2024-07-20 10:07 | Hospitalist Progress Note ---
Date of Service July 20, 2024 Assessment & Plan (1) Perineal abscess: Plan: Pt is a 58 yo female with PMH of metastatic breast cancer (in current tx) presenting due to severe vaginal pain and drainage. Perineal abscess - per pt, appears symptoms began ~4 weeks ago and progressing, now with purulent drainage from vagina - CTAP showing abscess 1.4 x 1.2 x 2.1 cm in size - blood cultures pending, urine culture pending - gen surgery consulted; defer management to TERRITORY ACCOUNT REPRESENTATIVE d/t vaginal drainage - OB consulted; recommended IV ABX x 48 hrs, no surgical intervention at this point - will continue with IV zosyn for 48 hours and, if improved, will transition to PO ABX Metastatic breast cancer - pt in current faslodex tx HTN - continue home lisinopril Depression/anxiety - continue home lexapro PTSD - continue prazosin nightly Diet: regular DVT ppx: as pt high risk with active cancer and may be less active d/t location of infection, will add heparin Code: full Dispo: med/surg (2) Breast cancer metastasized to bone: (3) PTSD (post-traumatic stress disorder): (4) Essential hypertension: (5) Depression with anxiety: Admission and Anticipated Discharge Date Admission Date: July 20, 2024 Supervising Physician Co-Signing Physician Notes Attending Physician Supervision Note: I independently interviewed and examined the patient and verified the [place] history and physical, reviewed labs and image studies and agree with findings and care plan noted above. Subjective Pt is a 58 yo female with PMH of metastatic breast cancer (in current tx) presenting due to severe vaginal pain and drainage. Pt notes this has been ongoing for the last 4 weeks which started with external vaginal lesions. She was tested for herpes at that time which was negative. Over the past week, she notes she has had purulent drainage from her vagina. She endorses feeling like her "insides are on fire" but otherwise no fever or chills. Review of Systems Review of Systems: As per HPI Physical Exam Physical Exam: Constitutional: well appearing, no acute distress HEENT: normocephalic, no conjunctival injection CV: RRR, no murmur, no LE edema Respiratory: CTA bilaterally. No rhonchi, wheezes, or crackles. No increased work of breathing MSK: no gross deformities noted Neuro: alert, oriented, no FND noted Psych: mood and affect congruent Results & Data Results & Data Vital Signs (Past 12 Hours) Vital Signs Temp Pulse Pulse Resp BP BP Pulse Ox 07/20/24 08:54 72 12 120/66 97 07/20/24 07:48 75 07/20/24 07:34 74 16 123/66 97 07/20/24 07:00 83 18 96 07/20/24 06:15 88 19 95 07/20/24 06:03 88 19 07/20/24 06:02 126/69 07/20/24 05:21 103 H 17 95 07/20/24 05:00 140/83 07/20/24 05:00 140/83 07/20/24 04:57 97 H 17 97 07/20/24 04:32 127/76 07/20/24 04:27 95 H 17 97 07/20/24 04:21 96 H 18 97 07/20/24 04:14 37.7 C H 93 H 17 153/99 H 97 07/20/24 03:51 96 H 13 97 07/20/24 03:51 93 H 07/20/24 03:42 93 H 19 153/99 H 97 07/20/24 02:16 36.7 C 105 H 18 146/70 H 97 O2 Del Method 07/20/24 08:54 Room Air 07/20/24 07:48 07/20/24 07:34 Room Air 07/20/24 07:00 07/20/24 06:15 Room Air 07/20/24 06:03 07/20/24 06:02 07/20/24 05:21 07/20/24 05:00 07/20/24 05:00 07/20/24 04:57 07/20/24 04:32 07/20/24 04:27 07/20/24 04:21 07/20/24 04:14 Room Air 07/20/24 03:51 07/20/24 03:51 07/20/24 03:42 Room Air 07/20/24 02:16 Room Air Resident Activity Tracking Resident Involvement: Resident Care Provided Care Provided: Adult Hospital Medicine
[2024-07-20] MEDS: valACYclovir HCL 500 MG TABLET PO SCH (11:17)
[2024-07-20] MEDS: ESCITALOPRAM OXALATE 20 MG TAB PO SCH (11:17)
[2024-07-20] MEDS: lisinopril 10 MG TAB PO SCH ×2 (11:17→21:28)
[2024-07-20] MEDS: PIPERACILLIN/TAZOBACTAM 4.5 GM/100 ML BAG IV SCH (11:17)
[2024-07-20] MEDS: MoRPHine SULFATE 2 MG/ML CARP IV PRN ×2 (11:27→20:05)
[2024-07-20] MEDS ORDERED: Nursing to Pharmacy Communication SCH (20:30)
[2024-07-20] MEDS: ALPRAZolam 0.5 MG TABLET PO PRN (21:29)
[2024-07-20] MEDS: PRAZOSIN HCL 1 MG CAP PO SCH (21:29)
[2024-07-21 05:58] LABS: Hematocrit (blood only) 28.2 % (37.0-47.0); Hemoglobin 9.5 g/dl (12.0-16.0); Mean Corpuscular Hemoglobin 33.5 pg (25.0-34.0); Mean Corpuscular Hgb Conc 33.7 g/dL (32.0-36.0); Mean Corpuscular Volume 99.3 fL (80.0-100.0); Mean Platelet Volume 8.8 fL (9.4-12.4); Platelet Count 414 K/uL (130-400); RDW Coefficient of Variation 14.8 % (11.5-14.5); RDW Standard Deviation 54.4 fL (36.4-46.3); Red Blood Count 2.84 M/uL (4.20-5.40)
[2024-07-21 06:09] LABS: Calcium 9.1 mg/dl (8.6-10.3); Creatinine Clr Calc Pharmacy 76.5 ml/min; Est GFR (African American) 114.6 ml/min; Est GFR (Non-African American) 98.9 ml/min; Potassium 3.6 mmol/L (3.5-5.1)
--- NOTE | 2024-07-21 07:19 | Gynecologic Progress Note ---
Date of Service July 21, 2024 Assessment & Plan (1) Perineal abscess: Plan: Abscess appears to be self-draining. Would suggest continue antibiotics until WBC normal and temp normal 24 hrs. Fluconazole for likely yeast infection Admission and Anticipated Discharge Date Admission Date: July 20, 2024 Subjective feels better with respect to pain. Has had drainage vaginally Physical Exam Constitutional: WD/WN, vitals as above well developed and well nourished Respiratory: normal respiratory effort, lungs clear to auscultation normal respiratory effort Cardiovascular: RRR, no murmur, no edema Gastrointestinal (Abdomen): normal bowel sounds, soft, nontender, no hepatosplenomegaly Results & Data Vital Signs (Past 12 Hours) Vital Signs Temp Pulse Resp BP Pulse Ox O2 Del Method 07/20/24 20:17 98.2 F 67 15 127/69 98 Room Air PG Care Time/CCT Total # of Minutes Spent Total Time Spent with Patient: Total time spent is greater than 50% in coordination of care (as documented) at patient's floor/unit and/or counseling patient: Coding Level of Care Code 53070 OP VST EST LOW 20 MIN Diagnoses Perineal abscess L02.215
--- NOTE | 2024-07-21 08:04 | Hospitalist Progress Note ---
Date of Service July 21, 2024 Assessment & Plan (1) Perineal abscess: Plan: Pt is a 58 yo female with PMH of metastatic breast cancer (in current tx) presenting due to severe vaginal pain and drainage. Perineal abscess - per pt, appears symptoms began ~4 weeks ago and progressing, now with purulent drainage from vagina - CTAP showing abscess 1.4 x 1.2 x 2.1 cm in size - blood cultures NTD, urine culture pending - gen surgery consulted; defer management to CARE DIRECTOR RN d/t vaginal drainage - OB consulted; recommended IV ABX x 48 hrs, no surgical intervention at this point - will continue with IV zosyn until tomorrow; then will transition to PO ABX Vaginal yeast infection - secondary to antibiotic use as above - given diflucan x1 Metastatic breast cancer - pt in current faslodex tx HTN - continue home lisinopril Depression/anxiety - continue home lexapro PTSD - continue prazosin nightly Diet: regular DVT ppx: pt high risk- discussed ambulation with pt; will hold heparin in setting of dropped Hgb Code: full Dispo: med/surg; plan for discharge tomorrow with PO ABX (2) Breast cancer metastasized to bone: (3) PTSD (post-traumatic stress disorder): (4) Essential hypertension: (5) Depression with anxiety: (6) Vaginal yeast infection: Admission and Anticipated Discharge Date Admission Date: July 20, 2024 Supervising Physician Co-Signing Physician Notes Attending Physician Supervision Note: I independently interviewed and examined the patient and verified the [place] history and physical, reviewed labs and image studies and agree with findings and care plan noted above. Subjective Pt doing well this morning but notes increased pain this AM. No pain meds overnight. Pt plans to walk around today to help promote vaginal drainage. Review of Systems Review of Systems: As per HPI Physical Exam Physical Exam: Constitutional: well appearing, no acute distress HEENT: normocephalic, no conjunctival injection CV: RRR, no murmur, no LE edema Respiratory: CTA bilaterally. No rhonchi, wheezes, or crackles. No increased work of breathing GI: soft, nondistended, nontender, + bowel sounds MSK: no gross deformities noted Skin: warm, dry, no rashes Neuro: alert, oriented, no FND noted Psych: mood and affect congruent Results & Data Results & Data Vital Signs (Past 12 Hours) Vital Signs Temp Pulse Resp BP Pulse Ox O2 Del Method 07/21/24 07:35 36.8 C 70 16 100/65 97 Room Air 07/20/24 20:17 36.8 C 67 15 127/69 98 Room Air Resident Activity Tracking Resident Involvement: Resident Care Provided Care Provided: Adult Hospital Medicine
[2024-07-21] MEDS ORDERED: HEPARIN SOD 5,000 UNIT/0.5 ML VIAL SQ SCH (09:00)
[2024-07-21] MEDS: FLUCONAZOLE 50 MG TAB PO ONE (09:10)
[2024-07-21] MEDS: DEXTROAMPHETAMINE/AMPHETAMINE ER 10 MG CAP PO SCH (09:12)
[2024-07-21] MEDS ORDERED: traMADol HCL 50 MG TABLET PO PRN (09:46)
[2024-07-21] MEDS: oxyCODONE HCL IR 5 MG TAB (IMMEDIATE RELEASE) PO PRN (13:20)
[2024-07-21] MEDS: ACETAMINOPHEN 500 MG TAB PO PRN (16:05)
[2024-07-21] MEDS: POLYETHYLENE (MIRALAX) 17 GM PACK PO PRN (22:41)
[2024-07-22 06:16] LABS: Hematocrit (blood only) 28.9 % (37.0-47.0); Hemoglobin 9.5 g/dl (12.0-16.0); Mean Corpuscular Hemoglobin 32.5 pg (25.0-34.0); Mean Corpuscular Hgb Conc 32.9 g/dL (32.0-36.0); Mean Platelet Volume 8.6 fL (9.4-12.4); Platelet Count 396 K/uL (130-400); RDW Coefficient of Variation 14.8 % (11.5-14.5); RDW Standard Deviation 54.5 fL (36.4-46.3); Red Blood Count 2.92 M/uL (4.20-5.40); White Blood Count 9.65 K/ul (4.8-10.8)
[2024-07-22 06:46] LABS: BUN Creatinine Ratio 22.1 (10-20); Calcium 8.9 mg/dl (8.6-10.3); Creatinine Clr Calc Pharmacy 70.9 ml/min; Est GFR (African American) 111.8 ml/min; Est GFR (Non-African American) 96.4 ml/min
[2024-07-22 07:08] VITALS: O2SAT 97
[2024-07-22 07:54] VITALS: RESP 16; TEMP 98.2
--- NOTE | 2024-07-22 09:45 | Gynecologic Progress Note ---
Date of Service July 22, 2024 Assessment & Plan (1) Perineal abscess: Plan: It sounds like has not symptomatically improved despite IV antibiotics. Remains afebrile. Discussed continued IV antibx but given lack of response, may need surgical intervention. Discussed with abscess involving vagina and anus, would rec transfer to tertiary care center with colorectal surgery. Pt gets all of her breast cancer care with [facility] so would prefer to go there if does require transfer over anywhere more local. Will send message to primary team Admission and Anticipated Discharge Date Admission Date: July 20, 2024 Subjective Pt notes same amount of drainage as has been since this started last few weeks. Gets relief from pain meds but doesn't feel like the swelling has improved from the IV antibiotics Physical Exam Genitourinary: No hsv lesions that were noted on prior consult. Perineum and hymenal remnant swelling noted, pt's nurse who is chaperoning says this appears slightly more swollen than it did before Unable to clearly assess where the drainage is coming from Results & Data Vital Signs (Past 12 Hours) Vital Signs Temp Pulse Resp BP Pulse Ox O2 Del Method 07/22/24 07:53 98.2 F 66 16 109/68 97 Room Air 07/22/24 07:05 98.4 F 72 14 103/67 97 Room Air PG Care Time/CCT Total # of Minutes Spent Total Time Spent with Patient: Total time spent is greater than 50% in coordination of care (as documented) at patient's floor/unit and/or counseling patient: Coding Level of Care Code None Diagnoses Perineal abscess L02.215
--- NOTE | 2024-07-22 10:54 | Discharge Summary ---
Date of Service July 22, 2024 Admission HPI Per Admitting Provider Carrie Cisneros is a 58yo female presenting with vulvar pain and swelling. Patient with history of metastatic breast cancer - follows with Oncology at [facility] - previously on Fulvestrant injections monthly which have been placed on hold until the end of the month due to side effects. Last chemotherapy 07/02/24. Patient reports one month of vaginal/perineal discomfort as well as the feeling that something is protruding from her vagina. She has had lesions as well - has been tested for HSV 1&2 as well as HCV which have been NEGATIVE. Over the last 36-48 hours she has had extreme discomfort - unable to sit. Has also had continuous drainage, yellow in color, no foul smell. Additionally patient reports subjective fevers, chills, rigors, fatigue and shortness of breath. In the ER she is afebrile but with elevated temperature to 37.7, HD stable ER Course: Solumedrol Morphine Zosyn NSS Admission Exam Per Admitting Provider General: patient in discomfort, NAD HEENT: NC/AT, PERRL, EOMI, anicteric sclera, conjunctiva without injection, external ear normal to inspection and nontender, nares patent, moist mucus membranes, dentition intact, no oropharyngeal lesions, neck supple, trachea midline, no LAD, no thyromegaly, no JVD Heart: +S1/S2, regular, no m/r/g Lungs: equal air entry bilaterally, no rales/rhonchi/wheezes Abd: +BS, soft, NT/ND, no masses/organomegaly/ascites Ext: warm, 2+ pulses in UE/LE bilaterally, no clubbing/cyanosis or edema Neuro: nonfocal, patient AA&O x 4, speech intact, no facial droop, moving all extremities on command with equal strength 5/5 Genitourinary exam deferred due to discomfort - patient was just recently examined by FOOT ORTHOPEDIST Principal Diagnosis perineal abscess Discharge Exam Constitutional: well appearing, no acute distress HEENT: normocephalic, no conjunctival injection CV: clinically well perfused Respiratory: No increased work of breathing MSK: no gross deformities noted Skin: warm, dry, no rashes Neuro: alert, oriented, no FND noted Discharge Data Allergies Allergy/AdvReac Type Severity Reaction Status Date / Time fentanyl AdvReac Severe Patient Verified 07/20/24 05:51 became very hyper-alert, agitation amoxicillin [From Augmentin] AdvReac yeast Verified 07/20/24 05:48 infection clavulanic acid AdvReac yeast Verified 07/20/24 05:48 [From Augmentin] infection clindamycin AdvReac yeast Verified 07/20/24 05:48 infection ibuprofen [From Advil] AdvReac yeast Verified 07/20/24 05:48 infection midazolam [From Versed] AdvReac Patient Verified 07/20/24 05:51 became very hyper-alert, agitation Consultations 07/20/24 05:16 ED Decision to Admit Stat 07/20/24 05:46 Consult General Surgery Routine 07/20/24 10:01 Consult Obstetrics Routine Ordered Studies 07/20/24 03:34 CT Abd and Pelvis [CT abd pelvis IV con only] Stat IMPRESSION: 1. There is a 1.4 x 1.2 x 2.1 cm abscess between the vagina and anus. This could represent an abscess or be secondary to a vaginal process. Clinical issues recommended. 2. Thickening of the bladder wall is concerning for cystitis. 3. Hysterectomy. 4. Hepatomegaly. Hospital Course (1) Perineal abscess: Pt is a 58 yo female with PMH of metastatic breast cancer (in current tx) presenting due to severe vaginal pain and drainage. Perineal abscess - per pt, appears symptoms began ~4 weeks ago and were progressive; she did have vaginal purulent drainage which has now slowed - CTAP 07/20 showing abscess 1.4 x 1.2 x 2.1 cm in size - blood cultures NTD, urine culture no growth - gen surgery consulted; defer management to FOOT ORTHOPEDIST d/t vaginal drainage - OB consulted; recommended IV ABX x 48 hrs- upon repeat exam this AM, OB recommending transfer to tertiary center for I&D by colorectal surgery - discussed with colorectal at [facility] who accepted pt for surgical intervention - will continue with IV zosyn until pt able to be transferred - continue pain control with oxycodone 5 mg PRN Vaginal yeast infection- resolved - secondary to antibiotic use as above - given diflucan x1 07/21 - may require repeat doses with continued antibiotic usage Metastatic breast cancer - pt in current faslodex tx HTN - continue home lisinopril Depression/anxiety - continue home lexapro PTSD - continue prazosin nightly Diet: regular DVT ppx: ambulation Code: full Dispo: transfer to [facility] today (2) Breast cancer metastasized to bone: (3) PTSD (post-traumatic stress disorder): (4) Essential hypertension: (5) Depression with anxiety: (6) Vaginal yeast infection: Total Time Total Time Spent Total Time Spent (In Minutes): as per attending attestation Discharge Plan Discharge Items Patient Disposition: Transfer Acute Care Hospital Reason For Visit: pelvic pain Discharge Diagnosis: perineal abscess Activity: Per Instructions section Non-emergency contact: Primary Care Provider and Oncologist Call non-emergency contact if: you have any medication questions, your symptoms worsen, your pain is worsening and your temperature is above 101 Follow-up/Referrals: Sai Ni DO [Primary Care Provider] - Diet: Regular Addtl Attending Provider Instructions: Pt is a 58 yo female with PMH of metastatic breast cancer (in current tx) presenting due to severe vaginal pain and drainage. Perineal abscess - per pt, appears symptoms began ~4 weeks ago and were progressive; she did have vaginal purulent drainage which has now slowed - CTAP 07/20 showing abscess 1.4 x 1.2 x 2.1 cm in size - blood cultures NTD, urine culture no growth - gen surgery consulted; defer management to FOOT ORTHOPEDIST d/t vaginal drainage - OB consulted; recommended IV ABX x 48 hrs- upon repeat exam this AM, OB recommending transfer to tertiary center for I&D by colorectal surgery - discussed with colorectal at [facility] who accepted pt for surgical intervention - will continue with IV zosyn until pt able to be transferred - continue pain control with oxycodone 5 mg PRN Vaginal yeast infection- resolved - secondary to antibiotic use as above - given diflucan x1 07/21 - may require repeat doses with continued antibiotic usage Metastatic breast cancer - pt in current faslodex tx HTN - continue home lisinopril Depression/anxiety - continue home lexapro PTSD - continue prazosin nightly Diet: regular DVT ppx: ambulation Code: full Dispo: transfer to [facility] today Pending Studies at Discharge: No Stand-Alone Forms: [email or web address], Smoking Cessation Skilled Items Patient informed of condition?: Yes DNR: No Discharge Level of Care: Other Communicable Disease: No Discharge Prognosis: Stable Lines: Peripheral IV Urinary Catheter: No Medications and DC Order Prescriptions: Continued lisinopril 10 mg tablet 10 mg PO DAILY Qty: 90 3RF alprazolam 0.5 mg tablet 0.5 mg PO HS PRN (Reason: anxiety) Patient Comments: pt states no medications today 05/25 prazosin 1 mg capsule 1 mg PO QPM dextroamphetamine-amphetamine 20 mg capsule,extended release 24hr 10 mg PO DAILY escitalopram oxalate 20 mg tablet 20 mg PO DAILY cholecalciferol (vitamin D3) 25 mcg (1,000 unit) capsule 25 mcg PO DAILY Kisqali 600 mg/day (200 mg x 3) tablet 600 mg PO DAILY Rx Instructions: filled 07/06/24 28 day supply administer for 21 days; off 7 days per 28-day cycle prochlorperazine maleate [Compazine] 10 mg tablet 10 mg PO DAILY PRN (Reason: n/v) Rx Instructions: fileld 06/18 8 day supply turmeric root extract 500 mg tablet 500 mg PO BID multivitamin Tablet 1 tab PO DAILY calcium carbonate 500 mg calcium (1,250 mg) tablet 500 mg PO BID fulvestrant [Faslodex] 300 mg IM MONTHLY zoledronic acid 4 mg/5 mL solution 4 mg IV DIRECTED Rx Instructions: unable to verify tramadol 50 mg tablet See Rx Instructions PO DAILY PRN (Reason: pain) Qty: 120 0RF Rx Instructions: filled 06/18 15 day supply 1-2 tab qid orally daily PRN; valacyclovir 500 mg tablet 500 mg PO DAILY Discontinued cephalexin 500 mg capsule 500 mg PO QID Qty: 40 0RF Rx Instructions: filled 07/19 for 10 day supply Admission Data Admit Date/Time: 07/20/24 05:46 Attending Provider: Brittani eTrrell Admit Provider: Julianna Lay Primary Care Provider: Sai Ni Other Providers: Yolette Boykin; Julianna Lay; Cinthya Louis Supervising Physician Co-Signing Physician Notes Attending Physician Supervision Note: I independently interviewed and examined the patient and verified the [place] history and physical, reviewed labs and image studies and agree with findings and care plan noted above. Resident Activity Tracking Resident Involvement: Resident Care Provided Care Provided: Adult [facility]
[2024-07-22 14:57] VITALS: BP 117/69; PULSE 65
== END 2024-07-22 18:10 | disposition short-term general hospital (02) | DRG 603 ==
LOC: SUATTDRO → ED 02:13 → EDINP 05:46 → SUATTDRO 05:46 → 3E 09:41